=== PATIENT | female | born 1985 | race Caucasian/White ===

== ENCOUNTER 2023-09-23 02:50 | Emergency (ER) | payer OTHER, SELFPAY ==
--- NOTE | ~2023-09-23 | XR_ITS ---
EXAMINATION: XR chest 2V DATE: 09/23/2023 03:33 INDICATION: Syncope. Fall. TECHNIQUE: Frontal and lateral views of the chest were obtained. COMPARISON: None. FINDINGS: There is no pneumonia, pleural effusion, or pneumothorax. The heart size is normal. IMPRESSION: 1. No acute cardiopulmonary disease. Reviewed, dictated and finalized at location A.
--- NOTE | 2023-09-23 02:53 | ECG_ITS ---
Test Date: 2023-09-23 03:00:42 Measurements Intervals [place] Rate: 81 P: 54 MS: 128 QRS: 52 QRSD: 81 T: 39 QT: 355 QTc: 413 Interpretive Statements SINUS RHYTHM WITHIN NORMAL LIMITS No previous ECG available for comparison Electronically Signed On 09-23-2023 15:03:22 CDT by Maikel Watson M.D.
[2023-09-23 02:58] VITALS: BP 143/80; PULSE 88; RESP 14; TEMP 36.4; O2SAT 100
--- NOTE | 2023-09-23 03:05 | ED.SYNCOPE ---
HPI - Syncope General Chief Complaint: Syncope Stated Complaint: Syncope x 2 Time Seen by Provider: 09/23/23 02:53 Source: patient and family Mode of arrival: ambulatory Limitations: no limitations History of Present Illness HPI narrative: Patient presents with report of syncope x2. She had gotten up at approximately 2:30 a.m. to use the restroom and rinsing her retainer alcohol based substance. She had been standing for approximately 2 minutes when she lost muscle tone and consciousness briefly. She states might of been preceded briefly lightheadedness but it all happened very quickly. She awoke she then attempted to stand up again and she believes she tried to do so too quickly and this happened again. She doesn't know if it was triggered by the smell of alcohol. No LE edema. She recently had PRK surgery (analagous to LASIK); did not undergo anesthesia for this. She that she has been feeling unwell for several months but especially recently after this surgery particularly when using the steroid eyedrops which she completed tonight. In general, she has also been very tired for the past several weeks. She states she still feels off with some pressure in her head and some chest tightness. She states she believes she had 1 syncopal episode once when she was a kid. No underlying cardiac history. 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 She states her menses is slightly heavy on the 1st and 2nd days. Last menstrual period 09/02/2023. She denies any shortness of breath. No cough, no hemoptysis. No prior DVT or PE. Not on oral contraceptive in or hormones. Related Data Allergies Allergy/AdvReac Type Severity Reaction Status Date / Time No Known Allergies Allergy Verified 09/23/23 02:51 [facility] Surgical History Surgical History S/P ASA (advanced surface ablation) surgery PRK (photorefractive keratectomy) [facility] Family History Family History Father Atrial fibrillation Social History Social History (Updated 09/23/23 @ 04:09 by Milagros Varela MD) Alcohol intake: current Alcohol use details: occasional Living arrangements: with family Exam Narrative: GENERAL: Well-appearing, well-nourished, and in no acute distress. HEAD: Normocephalic, atraumatic. EYES: non icteric. No conjunctival pallor. Mild scleral injection. ENT: Nares clear, no rhinorrhea or epistaxis. Dry mucous membranes. NECK: Supple. CHEST: Speaking in full sentences. No respiratory distress. LUngs clear to auscultation bilaterally. HEART: Regular rate and rhythm. . ABDOMEN: Soft, nondistended. EXTREMITIES: Normal range of motion. No lower extremity edema. SKIN: Warm, dry, no rash. NEURO: No focal deficits. Alert and oriented x3. PSYCH: Normal mood and affect. Course Vital Signs Vital signs: Vital Signs Temperature 97.6 F 09/23/23 02:58 Pulse Rate 88 09/23/23 02:58 Respiratory Rate 14 09/23/23 02:58 Blood Pressure 143/80 H 09/23/23 02:58 Pulse Oximetry 100 09/23/23 02:58 Oxygen Delivery Room Air 09/23/23 02:58 Temperature 97.6 F 09/23/23 02:58 Pulse Rate 75 09/23/23 04:23 Respiratory Rate 18 09/23/23 04:23 Blood Pressure 116/68 09/23/23 04:23 Pulse Oximetry 100 09/23/23 04:23 Oxygen Delivery Room Air 09/23/23 02:58 MDM - Syncope MDM Narrative Medical decision making narrative: Patient presents after reportedly 2 syncopal episodes. In the emergency department she is afebrile with acceptable vital signs. Considered PE but PERC Rule Age greater than or equal to 50: 0 HR greater than or equal to 100:0 O2 sat room air <95%:0 Unilateral leg swellin Hemoptysis: 0 Recent surgery or trauma less than 4 wks ago requiring tx with general anesthesia:0 Prior PE or DVT: 0 Hormone use (OCP, HRT or estrogenic hormone use in M/F patients): 0; Total Score = thus , will not
[2023-09-23 03:06] VITALS: PULSE 74
[2023-09-23 03:19] LABS: Hematocrit 42.8 % (37.0-47.0); Mean Corpuscular HGB Conc 32.7 g/dl (32-36); Mean Corpuscular Hemoglobin 28.9 pg (26-34); Mean Corpuscular Volume 88.2 fl (80-100); Mean Platelet Volume 9.3 fl (7.4-10.4); Platelet Count Result 299 k/mm3 (150-375); Red Blood Count 4.85 M/mm3 (4.2-5.4); Red Cell Distribution Width 13.5 % (11.5-14.5); White Blood Count 13.6 K/mm3 (4.5-10.0)
[2023-09-23 03:31] LABS: Alanine Aminotransferase 12 U/L (6-35); Albumin Level 4.5 g/dL (3.5-5.1); Alkaline Phosphatase 71 U/L (38-126); Anion Gap 11 mmol/L (4-12); Aspartate Amino Transferase 23 U/L (14-36); Bilirubin,Total 0.2 mg/dL (0.2-1.3); Blood Urea Nitrogen 10 mg/dL (7-17); Calcium 9.1 mg/dL (8.4-10.2); Carbon Dioxide 26 mmol/L (22-30); Chloride 101 mmol/L (98-107); Estimated CRCL calculation 88 ml/min; Estimated Glomerular Filt Rate > 60; Glucose 100 mg/dL (65-110); Potassium 3.4 mmol/L (3.4-5.0); Sodium 138 mmol/L (137-145)
[2023-09-23] MEDS: SODIUM CHLORIDE 0.9% IV 1,000 ML 999 ML IV CONT (03:37)
[2023-09-23 03:57] LABS: Band Neutrophils Percent 2 % (0-6); Lymphocytes Absolute Manual 6.12 K/mm3 (1.1-4.5); Lymphocytes Percent Manual 45 % (18-44); Neutrophils Absolute Manual 5.84 K/mm3 (1.7-7.2); Neutrophils Percent Manual 41 % (46-73); Total Cells Counted 100
[2023-09-23 03:58] LABS: Basophils Absolute Manual 0.13 K/mm3 (0.0-0.1); Basophils Percent Manual 1 % (0-1); Eosinophils Percent Manual 3 % (0-4); Monocytes Absolute Manual 0.95 K/mm3 (0.1-0.90); Monocytes Percent Manual 7 % (3-9); Other Cell Type 1; Platelet Estimate Adequate (Adequate)
[2023-09-23 03:59] LABS: Ovalocytes 1+; Schistocytes None Seen
[2023-09-23 04:18] VITALS: BP 123/65; PULSE 82
[2023-09-23 04:19] VITALS: BP 114/61; PULSE 65
[2023-09-23 04:20] VITALS: BP 116/68; PULSE 75
[2023-09-23 04:23] VITALS: BP 116/68; PULSE 75; RESP 18; O2SAT 100
[2023-09-23 04:24] LABS: BEDSIDEPREGUCG Negative
== END 2023-09-23 05:48 | disposition home or self-care (01) ==
PROVIDERS: Emergency Provider Student in an Organized Health Care Education/Training Program
DX: R55 Syncope and collapse (principal); D72.829 Elevated white blood cell count, unspecified
CPT/HCPCS: 36415; 71046; 80053; 81025; 85025; 93005; 96360; 99284; J7030